=== PATIENT | female | born 2000 | race Caucasian/White ===

== ENCOUNTER 2019-07-01 16:17 | Emergency (ER) | payer BC, SELFPAY ==
[2019-07-01 16:30] VITALS: BP 100/64; PULSE 96; RESP 16; TEMP 36.9; O2SAT 100
--- NOTE | 2019-07-01 16:37 | ED.SKABFB ---
HPI - Skin/Abscess/Foreign Bdy General Chief complaint: Wound/Laceration Stated complaint: left finger nail infection Time Seen by Provider: 07/01/19 16:44 Source: patient and family Mode of arrival: ambulatory History of Present Illness HPI narrative: Patient presents with tenderness and swelling to the nailbeds of her left second third and fourth fingers. Patient states it is been tender to touch with slight drainage at times from the nailbeds for the past 2 weeks. Patient states she has had this before and it usually resolves but there is been no improvement in the last 2 weeks. Patient has not applied anything [id number] to the area. Related Data Home Medications Medication Instructions Recorded Confirmed Bcp DAILY 07/01/19 albuterol sulfate 2 puff INHALATION QID PRN 07/01/19 07/01/19 Allergies Allergy/AdvReac Type Severity Reaction Status Date / Time No Known Allergies Allergy Mild Verified 07/01/19 16:42 Review of Systems Review of Systems: Narrative: CONSTITUTIONAL: Denies fever, chills, or sweats. EYES: Denies visual changes, redness, or discharge. ENT: Denies rhinorrhea, congestion, sore throat, or otalgia. CARDIOVASCULAR: Denies chest pain, palpitations, or edema. RESPIRATORY: Denies cough or dyspnea. GASTROINTESTINAL: Denies abdominal pain, nausea, vomiting, or diarrhea. GENITOURINARY: Denies dysuria or hematuria. SKIN: Denies rash or itching. Pain and tenderness to the nailbed of the left hand second third and fourth fingers MUSCULOSKELETAL: Denies back pain, joint pain, or myalgia. NEUROLOGIC: Denies headache, numbness, or weakness. PSYCHIATRIC: Denies anxiety or depression. PMFSH Comments At time of signature, agree with nursing past medical, surgical, social and family history. There is no relevant family history pertinent to the presenting complaint Exam Narrative: Exam Narrative: GENERAL: Well-appearing, well-nourished, and in no acute distress. HEAD: Normocephalic, atraumatic. EYES: PERRLA and EOMI. ENT: Nares clear, no rhinorrhea or epistaxis. Mucous membranes moist. NECK: Supple. CHEST: Clear to auscultation. No respiratory distress. HEART: Regular rate and rhythm. No murmur heard. Normal peripheral pulses. ABDOMEN: Soft, nontender, nondistended, normal active bowel sounds. EXTREMITIES: Normal range of motion. No edema. SKIN: Warm, dry, no rash.SWELLING AND REDNESS AND FLUCTUANCE CONSISTENT WITH PARONYCHIA. NORMAL CAP REFILL. NORMAL SENSATION OF DISTAL FINGER. NORMAL 2 POINT DISCRIMINATION. NORMAL MOVEMENT OF FINGER AT PIP, DIP, MCP. NORMAL HAND EXAM. NO STREAKING OR REDNESS INTO HAND. nail bed of lft hand 2nd 3rd and 4th fingers NEURO: No focal deficits. Alert and oriented x3. [place] Coma Scale Eye Opening: Spontaneous 4 [place] Coma Scale Motor: Obeys Commands 6 [place] Coma Scale Verbal: Oriented 5 [place] Coma Scale Total 15 Course Vital Signs Vital signs: Vital Signs Temperature 36.9 C 07/01/19 16:30 Pulse Rate 96 07/01/19 16:30 Respiratory Rate 16 07/01/19 16:30 Blood Pressure 100/64 07/01/19 16:30 Pulse Oximetry 100 07/01/19 16:30 Temperature 36.9 C 07/01/19 16:30 Pulse Rate 96 07/01/19 16:30 Respiratory Rate 16 07/01/19 16:30 Blood Pressure 100/64 07/01/19 16:30 Pulse Oximetry 100 07/01/19 16:30 MDM - Skin/Abscess/Foreign Bdy Differential Diagnosis Differential diagnosis: Likely abscess of skin or subcutaneous tissue, dermatophytosis, urticaria, cellulitis, eczema, insect bites, impetigo and contact dermatitis Critical Care Time Critical Care Time Critical Care Time: No Discharge Plan Discharge Clinical Impression: Paronychia, Paronychia of finger of left hand Patient Disposition: Home, Self-Care Condition: Stable Instructions: Antibiotic Form Additional Instructions: Warm Epson salt water soaks for 20 minutes 2-3 times a day for the next 3 to 4 days Antibiotics as prescribed until gone Apply triple a
== END 2019-07-01 16:45 | disposition home or self-care (01) ==
PROVIDERS: Emergency Provider Nurse Practitioner Family
DX: L03.012 Cellulitis of left finger (principal); J45.909 Unspecified asthma, uncomplicated; M41.9 Scoliosis, unspecified
CPT/HCPCS: 99203; G0463

== ENCOUNTER 2020-08-22 13:43 | Outpatient (CLI) | payer BC, SELFPAY ==
[2020-08-22 14:32] LABS: Hematocrit 42.1 % (37.0-47.0); Hemoglobin 13.8 g/dL (12.0-15.0); Mean Corpuscular HGB Conc 32.8 g/dl (32-36); Mean Corpuscular Hemoglobin 30.2 pg (26-34); Mean Corpuscular Volume 92.1 fl (80-100); Mean Platelet Volume 9.8 fl (7.4-10.4); Platelet Count Result 334 k/mm3 (150-375); Red Blood Count 4.57 M/mm3 (4.2-5.4); Red Cell Distribution Width 12.8 % (11.5-14.5); White Blood Count 6.2 K/mm3 (4.5-10.0)
[2020-08-26 11:41] LABS: Tissue Transglutaminase IgG Ab 1 U/mL (<6)
[2020-08-26 19:18] LABS: Tissue Transglutaminase IgA Ab 1 U/mL (<4)
== END 2020-08-22 13:44 | disposition home or self-care (01) ==
PROVIDERS: PCP Pediatrics; Visit Provider Nurse Practitioner Family
DX: R14.0 Abdominal distension (gaseous) (principal)
CPT/HCPCS: 36415; 83516; 85027

== ENCOUNTER → 2020-09-10 04:08 | Outpatient (CLI) | payer BC, SELFPAY ==
[2020-09-10 19:46] LABS: SARS-CoV-2 RNA PCR Negative
== END ==
PROVIDERS: PCP Pediatrics; Visit Provider Internal Medicine Gastroenterology
DX: Z01.812 Encounter for preprocedural laboratory examination (principal); Z20.822 Contact with and (suspected) exposure to COVID-19
CPT/HCPCS: C9803; U0003; U0005

== ENCOUNTER 2020-09-13 00:35 | Day surgery (SDC) | payer BC, SELFPAY ==
[2020-09-06 11:41] VITALS: BMI 21.6
[2020-09-13 07:41] VITALS: BP 113/66; PULSE 94; RESP 20; TEMP 36.3; O2SAT 100; BMI 21.7
[2020-09-13] MEDS: LACTATED RINGERS 1,000 ML 150 ML IV CONT (07:50)
--- NOTE | 2020-09-13 07:58 | WPDANESEPPF ---
Anes - Initial Pre Proc Eval Procedure: Operation Date: 09/13/20 08:30 Proposed Procedures p Esophagogastroduodenoscopy - Phong Velasquez MD Date/Time: 09/13/20 07:58 Surgeon: Phong Velasquez MD Pre Op Diagnosis: epigastric pain Patient Data Age: 20 Gender: F Height: 5 ft 5 in Weight: 59.2 kg Last Vital Signs Temp 97.4 F L 09/13/20 07:41 Pulse 94 09/13/20 07:41 Resp 20 09/13/20 07:41 BP 113/66 09/13/20 07:41 Pulse Ox 100 09/13/20 07:41 Allergies Allergy/AdvReac Type Severity Reaction Status Date / Time No Known Allergies Allergy Mild Verified 09/13/20 07:36 Home Medications Medication Instructions Recorded Confirmed Type albuterol sulfate 2 puff INHALATION QID PRN 07/01/19 09/06/20 History norethindrone-e.estradiol-iron 1 tablet PO DAILY 09/06/20 09/06/20 History [[place] 24 Fe] Patient hx anesthesia problems: none Family hx anesthesia problems: none [facility]LY [facility] Past Medical History Medical History (Updated 09/13/20 @ 07:58 by Kb Ventura MD) GERD (gastroesophageal reflux disease) Postprandial abdominal bloating Social History Social History (Updated 08/22/20 @ 13:12 by Chary White CMA) Smoking status: Never smoker Alcohol intake: current Alcohol use details: infrequent Substance use: never Living arrangements: with family Gender identity (if verbalized by the patient): Female Spiritual care concerns: No Anes - Eval Final PreProcedure Day of Procedure 09/13/20 07:58 Patient weight: normal Heart: regular rate and rhythm Lungs: clear to auscultation Airway: Mallampati scale class II Neurological: alert and oriented Last oral intake: >/= 8 hours ASA classification: II Emergent: no Anesthetic plan: proceed Anesthesia type and monitoring: general GIVS and standard monitoring Informed Consent: The patient's anesthetic plan and its attendant risks and benefits were discussed with the patient/family/POA. Questions were solicited and answers provided to the satisfaction of the patient/family/POA.
--- NOTE | 2020-09-13 08:29 | WPDGICN ---
Assessment and Plan Assessment and plan (1) Epigastric abdominal pain: Code(s): R10.13 - Epigastric pain Status: Acute Assessment and Plan: Patient with a year and a half history of epigastric pain bloating and loose stools. The etiology is unclear. Irritable bowel syndrome is a consideration. Plan is for EGD is requested to evaluate for organic disease of the stomach. If this is not fruitful suggest a trial of acid suppression such as Pepcid perhaps fiber supplementation to bulk up stool for possible irritable bowel syndrome. Further recommendations will be given after endoscopy. GI Consult Note Consult date/time: 09/13/20 08:29 HPI: Aruna Jacinto is a 20 year old female presents for EGD. Patient seen by the nurse practitioner in the office. Patient reports a 1-1/2 year history of epigastric discomfort. She feels quite bloated. Typically after most every meal. Not any specific dietary intake will cause this. She does notice loose stools that occur intermittently. Sometimes no stools in a days time but may have 1 or several. These appears somewhat irregular. She states she has not had a formed stool for the last year and a half. Patient denies any bleeding. She denies any fever. She has never tried antacids. However she has tried Gas-X and Beano with no relief. Her family history is noncontributory. Patient has no change in medications. She has had no significant travel history. She presents today for EGD. Review of Systems Review of Systems: All systems reviewed & are unremarkable except as noted in HPI and below PMFSH Past Medical History Medical History (Updated 09/13/20 @ 08:31 by Phong Velasquez MD) GERD (gastroesophageal reflux disease) Postprandial abdominal bloating Social History Social History (Updated 08/22/20 @ 13:12 by Chary White CMA) Smoking status: Never smoker Alcohol intake: current Alcohol use details: infrequent Substance use: never Living arrangements: with family Gender identity (if verbalized by the patient): Female Spiritual care concerns: No Meds Home Medications and Allergies Home Medications Medication Instructions Recorded Confirmed Type albuterol sulfate 2 puff INHALATION QID PRN 07/01/19 09/06/20 History norethindrone-e.estradiol-iron 1 tablet PO DAILY 09/06/20 09/06/20 History [Blisovi 24 Fe] Allergies Allergy/AdvReac Type Severity Reaction Status Date / Time No Known Allergies Allergy Mild Verified 09/13/20 07:36 Vital Signs Vital Signs - 24 hr 09/13/20 07:41 Temperature 97.4 F L Pulse Rate 94 Respiratory Rate 20 Blood Pressure 113/66 Pulse Oximetry 100 Exam Narrative: Exam Narrative: Physical exam reveals patient be alert. Vital signs stable. HEENT exam is unremarkable. Patient is anicteric. Lungs are clear to auscultation and percussion. Heart is without murmur or extra sounds. Abdominal exam bowel sounds are present soft nontender with no organomegaly. Rectal exam is deferred today.
[2020-09-13] MEDS: BENZOCAINE (*SP) 60 ML SPRAY CAN (HURRICAINE) 1 SPRAY MUCOUS MEM (08:45)
[2020-09-13 08:58] VITALS: BP 142/104; PULSE 86; RESP 23; O2SAT 100
[2020-09-13 09:08] VITALS: BP 103/65; PULSE 79; RESP 25; O2SAT 99
[2020-09-13 09:18] VITALS: BP 102/62; PULSE 69; RESP 17; O2SAT 100
== END 2020-09-13 09:28 | disposition home or self-care (01) ==
PROVIDERS: PCP Pediatrics; Visit Provider Internal Medicine Gastroenterology
PROC: 0DJ08ZZ Inspection of Upper Intestinal Tract, Via Natural or Artificial Opening Endoscopic (ICD-10-PCS; CPT 43235; principal; 2020-09-13 08:30)
DX: R10.13 Epigastric pain (principal); K21.9 Gastro-esophageal reflux disease without esophagitis; Z79.2 Long term (current) use of antibiotics; Z79.51 Long term (current) use of inhaled steroids
CPT/HCPCS: 43239; 87081; 88305; J2001; J2704; J7120